=== PATIENT | female | born 1975 | race African-American/Black ===

== ENCOUNTER 2017-01-09 15:07 | Emergency (ER) | payer MEDICAID ==
[~2017-01-09] VITALS: Ht 162.6 cm; Wt 146.0 kg
[2017-01-09 17:34] LABS: CLARITY URINE CLEAR (CLEAR); COLOR URINE YELLOW (YELLOW); GLUCOSE URINE NEGATIVE (NEGATIVE); KETONES URINE NEGATIVE (NEGATIVE); LEUKOCYTE ESTERASE URINE TRACE (NEGATIVE); NITRITE URINE NEGATIVE (NEGATIVE); OCCULT BLOOD URINE NEGATIVE (NEGATIVE); PROTEIN URINE NEGATIVE (NEGATIVE); SPECIFIC GRAVITY URINE 1.025 (1.005-1.030)
[2017-01-09] MEDS: SODIUM CHLORIDE 0.9% 1,000 ML IV ONE (17:36)
[2017-01-09 19:04] LABS: BASOPHILS % 0.7 % (0.0-2.0); EOSINOPHILS % 1.9 % (0.0-5.0); HEMATOCRIT. 34.5 % (36.0-48.0); HEMOGLOBIN. 11.7 g/dL (12.0-16.0); MEAN CORPUSCULAR HEMOGLOBIN 30.5 pg (28.0-32.0); MEAN CORPUSCULAR VOLUME 90.4 fL (81.0-99.0); MEAN PLATELET VOLUME 7.8 fl (7.4-10.4); MONOCYTES % 7.2 % (2.0-8.0); NEUTROPHILS % 54.2 % (40.0-76.0); PLATELET 288 x1000/uL (130-400); RED BLOOD CELL COUNT 3.82 mill/uL (4.2-5.4); RED CELL DISTRIBUTION WIDTH 14.2 % (11.6-14.6)
[2017-01-09 19:23] LABS: CARBON DIOXIDE 25 mEq/L (21-32); CHLORIDE 106 mEq/L (98-107)
[2017-01-09 19:35] LABS: B-HCG QUANTITATIVE 92109 mIU/mL (<3)
[2017-01-09 20:45] VITALS: BP 119/81
== END 2017-01-09 20:56 | disposition home or self-care (01) ==
LOC: ER 17:52
DX: O16.1 Unspecified maternal hypertension, first trimester (principal); O20.0 Threatened abortion; Z3A.13 13 weeks gestation of pregnancy
CPT/HCPCS: 36415; 76801; 76817; 80048; 81001; 84702; 85025; 86850; 86900; 86901; 96360; 96361; 99285; J7030; Z7610